=== PATIENT | female | born 1965 | race Caucasian/White ===

== ENCOUNTER → 2017-10-22 13:41 | Outpatient (REF) | payer BC, SELFPAY ==
--- NOTE | 2017-10-22 13:30 | ENDOMET_PTH ---
PATIENT: Inge Sutherland LOC: [facility] U#:[id number] AGE/SX: 59/F ROOM: RE10/22/[address]: Yaneth Andujar MD : 1965 BED: DIS: SPEC #: [id number] RECD: 10/22/17 15:30 STATUS: LEILANI REQ #: [id number] JOSE: 10/22/17 13:[address]: Yaneth Andujar DEPT: Surgical Specimen RECD BY: Luba Batres ENTERED: 10/22/17 15:30 SP TYPE: Endomet OTHR DR: Gerhard Hawk Tissues: 1 - ENDOMETRIUM BX/KENNYETTE Procedures: GROSS AND MICRO LEVEL 4 Comments: [id number]
== END ==
LOC: LBN 13:41
PROVIDERS: PCP Internal Medicine; Visit Provider Obstetrics & Gynecology
DX: N93.8 Other specified abnormal uterine and vaginal bleeding (principal); N85.8 Other specified noninflammatory disorders of uterus
CPT/HCPCS: 88305

== ENCOUNTER → 2017-11-07 00:48 | Outpatient (CLI) | payer BC, SELFPAY ==
--- NOTE | 2017-11-07 07:55 | DI.REPORT_ITS ---
SYMPTOM/DIAGNOSIS: H/O FIBROIDS, DYSFUNCTIONAL UTERINE BLEEDING, N93.8 PELVIC ULTRASOUND: 11/07 Pelvic ultrasound was performed transabdominally and transvaginally. Please see the accompanying data sheet for measurements of the pelvic structures. Limited scanning of the kidneys is unremarkable. No free fluid identified in the cul de sac. The uterus contains a couple of posterior fibroids the largest measuring about 28 mm in diameter. There is 18 mm thick endometrial stripe which is heterogeneous and appears to contain heterogeneous fluid consistent with hemorrhage. 26 mm in diameter simple cyst of the left ovary noted. No additional variant pathology identified. CONCLUSION: Uterine fibroids, thickening of the endometrial stripe which is heterogeneous with suspected hemorrhage in the endometrial cavity.
== END ==
PROVIDERS: PCP Internal Medicine; Visit Provider Obstetrics & Gynecology
DX: N93.8 Other specified abnormal uterine and vaginal bleeding (principal); D25.9 Leiomyoma of uterus, unspecified; N83.292 Other ovarian cyst, left side; R93.8 Abnormal findings on diagnostic imaging of other specified body structures
CPT/HCPCS: 76830; 76856

== ENCOUNTER 2017-11-23 11:33 | PSDC | payer BC, SELFPAY ==
[2017-11-23 12:22] LABS: Abs Immature Grans 0.04 k/cumm (0.0-0.09); Absolute Basophil Count 0.04 k/cumm (0.0-0.2); Absolute Eosinophil Count 0.13 k/cumm (0.0-0.7); Absolute Lymphocyte Count 2.19 k/cumm (1.2-3.4); Basophils % 0.3; Eosinophils % 0.9; HCT 40.9 % (36.0-46.0); HGB 13.4 g/dL (12.0-15.5); Immature Grans % 0.3; Lymphocytes % 15.1; Mean Corp. HGB Concentration 32.8 g/dL (32.0-36.0); Mean Corpuscular Volume 94.7 fL (80-95); Mean Platelet Volume 9.8 fL (8.0-11.0); Monocytes % 5.7; Neutrophils % 77.7; Platelet Count 358 x1000/uL (130-400); RBC 4.32 m/cumm (4.00-5.20); RBC Distribution Width 13.7 % (11.7-14.6); White Blood Cell Count 14.51 k/cumm (4.4-10.8)
[2017-11-23 12:24] LABS: Absolute Monocyte Count 0.83 k/cumm (0.11-0.7); Absolute Neutrophil Count 11.27 k/cumm (1.2-6.7)
[2017-11-23 12:38] VITALS: BP 134/88; PULSE 96; RESP 16; TEMP 37.5; O2SAT 98
[2017-11-23 12:44] VITALS: BP 134/88; PULSE 96; RESP 16; TEMP 37.5; O2SAT 98
[2017-11-23] MEDS: Lactated Ringers 1,000 ML 125 ML IV (12:45)
[2017-11-23] MEDS: Lidocaine 1% Pres-Free 5 ML VIAL 20 ML (13:47)
--- NOTE | 2017-11-23 13:48 | ENDOMET_PTH ---
PATIENT: Inge Sutherland LOC: [facility] U#:[id number] AGE/SX: 52/F ROOM: RE11/23/[address]: Jamal Turk MD : 1965 BED: DIS: 11/23/2017 SPEC #: [id number] RECD: 11/23/17 15:45 STATUS: LEILANI REQ #: [id number] JOSE: 11/23/17 13:[address]: Jamal Turk DEPT: Surgical Specimen RECD BY: Luba Batres ENTERED: 11/23/17 15:46 SP TYPE: Endomet OTHR DR: Gerhard Hawk Tissues: 1 - ENDOMETRIUM BX/CURRETTE Procedures: GROSS AND MICRO LEVEL 4 Comments: [id number]
[2017-11-23] MEDS: oxyCODONE 5 mg/Acetaminophen 325 mg TAB PO (14:43)
[2017-11-23 14:45] VITALS: BP 139/80; PULSE 89; RESP 16; TEMP 37.7; O2SAT 99
--- NOTE | 2017-11-23 15:49 | W.PM.OP ---
Date of service: 11/23/17 Time of Service: 15:49 Operative Note Date of procedure: 11/23/17 Pre-op diagnosis: Abnormal uterine bleeding Post-op diagnosis: same Procedure: Hysteroscopy, D&C Surgeon: Jamal Turk Anesthesia: MAC Estimated blood loss (mL): 100 Pathology: none sent (Endometrial Curettings ) Complications: None Patient was transported to: PACU Patient's condition: stable Findings: Cervix dilated 1cm with moderate bleeding. Hysterocopy was unrevealing with poor visualization due to inability to maintain distention of the uterus Procedure Description: Patient was taken to the operating room and after an adequate level of sedation was achieved patient was placed in lithotomy position. The patient was prepped and draped in usual sterile manner. A weighted speculum was placed in the vagina with good visualization of the cervix. The anterior lip of the cervix was grasped with a single-tooth tenaculum. Cervix was noted to be dilated approximately 1 cm with copious blood and clots emanating from the cervical os. A 5 mm 30? hysteroscope with normal saline distention media was advanced without difficulty. Visualization of the endometrial cavity was difficult due to the large volume of clots within the cavity and the inability to maintain distention due to the dilated cervix. A sharp curettage was performed until a gritty texture was noted throughout. Endometrial curettings were obtained and submitted to pathology. The procedure was concluded at this point. All instrumentation was removed. The patient tolerated the procedure well and was transferred to PACU in stable condition.
== END 2017-11-23 15:56 | disposition home or self-care (01) ==
PROVIDERS: PCP Internal Medicine; Visit Provider Obstetrics & Gynecology
PROC: 0UDB8ZZ Extraction of Endometrium, Via Natural or Artificial Opening Endoscopic (ICD-10-PCS; CPT 58558; principal; 2017-11-23 13:30)
DX: N93.9 Abnormal uterine and vaginal bleeding, unspecified (principal); N72 Inflammatory disease of cervix uteri
CPT/HCPCS: 58558; 36415; 86850; 86900; 86901; 88305; 85025; J2250; J2405

== ENCOUNTER 2018-06-10 00:17 | Outpatient (CLI) | payer BC, SELFPAY ==
--- NOTE | 2018-06-10 07:27 | DI.MAMMO_ITS ---
SYMPTOM/DIAGNOSIS: SCREENING, Z12.31 MAMMOGRAMS: Mammograms were interpreted according to the usual protocol including computer analysis with CAD system, tomosynthesis and C view imaging. Comparison is made with exams from [id number]. The breasts are composed of scattered fibroglandular densities. Breast density, Category B. There is an asymmetry in the upper right breast versus overlying tissue. Spot compression views and ultrasound are requested for further evaluation. No change is seen in the left breast. IMPRESSION: Left breast, category 1, negative. Right breast, category 0. MQSA ASSESSMENT OF FINDINGS: Incomplete: Needs additional imaging evaluation. Category 0. Patient will receive a letter notifying them of these results. BI-RADS category B. There are scattered areas of fibroglandular density.
== END 2018-06-10 00:37 ==
PROVIDERS: PCP Internal Medicine; Visit Provider Nurse Practitioner Family
DX: Z12.31 Encounter for screening mammogram for malignant neoplasm of breast (principal); R92.8 Other abnormal and inconclusive findings on diagnostic imaging of breast
CPT/HCPCS: 77063; 77067

== ENCOUNTER 2018-06-19 03:54 | Outpatient (CLI) | payer BC, SELFPAY ==
--- NOTE | 2018-06-19 14:14 | DI.COMBO_ITS ---
SYMPTOM/DIAGNOSIS: F/U MAMMO, ASYMMETRY RT UPPER BREAST RIGHT BREAST ADDITIONAL VIEWS AND RIGHT BREAST ULTRASOUND: Additional images are interpreted according to the usual protocol including tomosynthesis and 2D imaging. Craniocaudad and mediolateral compression spot images of the right breast were obtained today. Nonspecific fibroglandular densities are identified. No definite nodule is seen. At ultrasound, there is no evidence of a cyst or mass. SUMMARY: Small asymmetric density in the right breast with nothing specific to suggest a malignancy, however follow up surveillance of this patient with repeat mammograms and ultrasound of the right breast is suggested in 6 months. Category 3. MQSA ASSESSMENT OF FINDINGS: Probably benign. Six month follow-up recommended. Category 3. Patient will receive a letter notifying them of these results. BI-RADS category B. There are scattered areas of fibroglandular density.
== END 2018-06-19 04:14 ==
PROVIDERS: PCP Internal Medicine; Visit Provider Nurse Practitioner Family
DX: Z12.31 Encounter for screening mammogram for malignant neoplasm of breast (principal); R92.8 Other abnormal and inconclusive findings on diagnostic imaging of breast; N60.81 Other benign mammary dysplasias of right breast
CPT/HCPCS: 76642; 77063; 77067

== ENCOUNTER 2018-11-04 14:15 | Outpatient (CLI) | payer BC, SELFPAY ==
--- NOTE | 2018-11-04 14:30 | DI.RAD_ITS ---
SYMPTOM/DIAGNOSIS: THORACIC BACK PAIN, M54.6 PA AND LATERAL CHEST: The heart is normal in size. The lungs are clear. The mediastinal structures and pleura appear intact. CONCLUSION: Normal chest. THORACIC SPINE: Three views were obtained. There is loss of disc height of the intervertebral discs throughout the thoracic spine. Endplate hypertrophic changes are also seen throughout the thoracic region. No evidence of fracture. No other significant bony abnormality is seen. CONCLUSION: Degenerative changes, no other specific abnormality is seen.
== END 2018-11-04 14:35 ==
PROVIDERS: PCP Internal Medicine; Visit Provider Nurse Practitioner Family
DX: M54.6 Pain in thoracic spine (principal); M51.34 Other intervertebral disc degeneration, thoracic region
CPT/HCPCS: 71046; 72072

== ENCOUNTER 2018-12-27 00:06 | Outpatient (CLI) | payer BC, SELFPAY ==
--- NOTE | 2018-12-27 13:58 | DI.MAMMO_ITS ---
EXAM: MG MAMMO DIAGNOSTIC UNI CLINICAL HISTORY: 6 mo f/u right mammogram R92.8 ABNORMAL FINDINGS. TECHNIQUE: Mammograms were interpreted according to the usual protocol including computer analysis w [employer] CAD system, tomosynthesis and C-view imaging. COMPARISON: 06/19/18 Mammogram FINDINGS: A 6-month follow-up examination of the right breast includes mediolateral and craniocaudad projection s. The density is identified. There has been no appreciable interval change when compared with the p rior examination. There is no demonstrated mass. There is no suspicious calcification. IMPRESSION: No evidence of malignancy, category 1, yearly screening mammography is recommended. Breast density c ategory B. BI-RADS Cat 1 - Negative Breast Density - Category B - Scattered areas of fibroglandular density
== END 2018-12-27 00:26 ==
PROVIDERS: PCP Internal Medicine; Visit Provider Nurse Practitioner Family
DX: Z12.31 Encounter for screening mammogram for malignant neoplasm of breast (principal); R92.8 Other abnormal and inconclusive findings on diagnostic imaging of breast; N60.81 Other benign mammary dysplasias of right breast
CPT/HCPCS: 77061; 77065; G0279

== ENCOUNTER 2019-02-03 12:06 | Outpatient (CLI) | payer BC, SELFPAY ==
--- NOTE | 2019-02-03 13:20 | DI.RAD_ITS ---
EXAM: XR FOOT RT COMPLETE INDICATION: RT FOOT PAIN, M79.671. COMPARISON: No exams were available for comparison TECHNIQUE: 2D digital imaging was performed. FINDINGS: There is no evidence of fracture or signs of stress fracture. Heel spurs are noted. There are minim al degenerative changes of the 1st MTP joint. IMPRESSION: Heel spurs and mild degenerative changes.
== END 2019-02-03 12:26 ==
PROVIDERS: PCP Internal Medicine; Visit Provider Nurse Practitioner Family
DX: M79.671 Pain in right foot (principal); M77.31 Calcaneal spur, right foot; M19.071 Primary osteoarthritis, right ankle and foot
CPT/HCPCS: 73630

== ENCOUNTER 2019-08-04 01:07 | Outpatient (CLI) | payer BC, SELFPAY ==
--- NOTE | 2019-08-04 15:30 | DI.MAMMO_ITS ---
EXAM: MG MAMMO SCREENING CLINICAL HISTORY: screening,Z12.39 TECHNIQUE: Bilateral full field digital CC and MLO mammographic images were obtained with 3D tomosyn thesis and utilizing computer aided detection (CAD). COMPARISON: Available for comparison. FINDINGS: Masses/Architectural Distortion: None seen. Microcalcifications: No suspicious pleomorphic-type are seen. Skin Thickening/Nipple Retraction: None. IMPRESSION: 1. No significant interval change with no specific features of malignancy noted. 2. Unless there is more urgent need, screening mammography is recommended, as per [employer] [employer] guidelines. BI-RADS Category 1 - Negative Breast Density - Category B - Scattered areas of fibroglandular density A negative radiographic report should not delay biopsy if a dominant or clinically suspicious mass is present. Up to ten percent of cancers are not identified on mammography. A negative report may reinforce clinical impression. Adenosis and dense breasts may obscure an underlying neoplasm. False positive reports average 6 to 10%. Patient will receive a letter notifying them of these results.
== END 2019-08-04 01:27 ==
PROVIDERS: PCP Internal Medicine; Visit Provider Nurse Practitioner Family
DX: Z12.31 Encounter for screening mammogram for malignant neoplasm of breast (principal)
CPT/HCPCS: 77063; 77067

== ENCOUNTER 2019-10-02 14:25 | Outpatient (REF) | payer BC, SELFPAY ==
[2019-10-09 22:24] LABS: SARS-CoV-2 RNA Undetected (Undetected); SARS-CoV-2 Specimen Source Nasopharynx
== END 2019-10-02 14:45 ==
LOC: NCHCN 14:25
PROVIDERS: PCP Internal Medicine; Visit Provider Nurse Practitioner Family
DX: Z11.59 Encounter for screening for other viral diseases (principal); J02.9 Acute pharyngitis, unspecified
CPT/HCPCS: U0003

== ENCOUNTER 2020-02-16 00:57 | Outpatient (CLI) | payer BC, SELFPAY ==
--- NOTE | 2020-02-16 06:45 | DI.US_ITS ---
EXAM: US PELVIS TRANSVAGINAL CLINICAL HISTORY: POSTMENOPAUSAL BLEEDING,N93.9. TECHNIQUE: Transabdominal and transvaginal pelvic ultrasound was performed using standard protocol. COMPARISON: US PELVIS TRANSVAG from 11/07/2017 FINDINGS: KIDNEYS: Kidneys are symmetric in size. No evidence of renal calculi. No evidence of hydronephrosis. No renal mass or cyst identified. UTERUS: The uterus is nongravid in anteverted, measuring 12 centimetres in length by 5 centimetres AP by 7.5 centimetres wide there are an fibroids again noted. The largest is posteriorly near the fundus and m easures approximately 3.4 x 2.5 x 3.1 centimetres. Anteriorly at approximately the same level there is a fibroid measuring 2.9 x 2.2 x 3.0 centimetres. Lower down in the anterior uterine wall is a sma ller fibroid measures 1.2 x 1.0 x 1.3 centimetres. The endometrial thickness is 9-10 millimeters.. There is no fluid in the endometrial canal. OVARIES: Right: 1.8 x 1.3 x 1.2 centimeter cm Cyst or mass: None. Left: 2.5 x 1.6 x 1.37 cm Cyst or mass: None. DOPPLER: Color: Symmetric and uniform flow to both ovaries. No hyperemia. Duplex: Normal ovarian arterial waveforms visualized. CUL-DE-SAC: Free fluid: None. Other: None. IMPRESSION: 1. Uterine fibroids again noted. Thickened endometrium. No fluid in the endometrial canal. 2. No abnormal adnexal findings and no free fluid in the cul-de-sac. 3. Normal-appearing uterus with endometrial stripe within normal limits. 4. Unremarkable bilateral ovaries. DATA REPOSITORY:
== END 2020-02-16 01:17 ==
PROVIDERS: PCP Internal Medicine; Visit Provider Obstetrics & Gynecology
DX: N93.9 Abnormal uterine and vaginal bleeding, unspecified (principal); D25.9 Leiomyoma of uterus, unspecified
CPT/HCPCS: 76830; 76856

== ENCOUNTER 2020-02-23 18:05 | Outpatient (REF) | payer BC, SELFPAY ==
--- NOTE | 2020-02-23 14:47 | ENDOMET_PTH ---
PATIENT: Inge Sutherland LOC: [facility] U#:[id number] AGE/SX: 54/F ROOM: RE02/23/[address]: Lorena Flores DO : 1965 BED: DIS: 02/23/2020 SPEC #: [id number] RECD: 02/23/20 18:23 STATUS: LEILANI REQ #: [id number] JOSE: 02/23/20 14:[address]: Lorena Flores DEPT: Surgical Specimen RECD BY: Luba Batres ENTERED: 02/23/20 18:24 SP TYPE: Endomet OTHR DR: Gerhard Hawk Tissues: 1 - ENDOMETRIUM BX/KENNYETTE Procedures: GROSS AND MICRO LEVEL 4 Comments: [id number]
== END 2020-02-23 18:25 ==
LOC: LBN 18:05
PROVIDERS: PCP Internal Medicine; Visit Provider Obstetrics & Gynecology
DX: N85.01 Benign endometrial hyperplasia (principal); N95.0 Postmenopausal bleeding
CPT/HCPCS: 88305

== ENCOUNTER 2020-03-26 02:28 | Outpatient (CLI) | payer BC, SELFPAY ==
[2020-03-26 09:11] LABS: HCT 45.9 % (36.0-46.0); MCH 30.7 pg (27.0-33.0); MCHC 32.7 % (32.0-36.0); MCV 94.1 fL (80-95); Platelet Count 323 10^3/uL (130-400); RBC 4.88 10^6/uL (3.93-5.22); RDW 13.2 % (11.7-14.6); RDW-SD 45.8 fL; WBC 8.31 10^3/uL (4.4-10.8)
[2020-03-27 15:32] LABS: COVID-19 RT-PCR UVMMC Result Negative (Negative)
== END 2020-03-26 02:48 ==
PROVIDERS: PCP Internal Medicine; Visit Provider Obstetrics & Gynecology
DX: D25.9 Leiomyoma of uterus, unspecified (principal); N95.0 Postmenopausal bleeding; Z11.52 Encounter for screening for COVID-19; Z01.818 Encounter for other preprocedural examination; Z01.812 Encounter for preprocedural laboratory examination
CPT/HCPCS: 36415; 85027; 86850; 86900; 86901; U0003

== ENCOUNTER 2020-03-31 07:30 | Inpatient (IN) | payer BC, SELFPAY ==
[2020-03-31] VITALS (15 sets, daily range): BP systolic 107–150; BP diastolic 73–94; PULSE 70–105; RESP 9–18; TEMP 36.1–37.3; O2SAT 95–98
[2020-03-31] MEDS: Lactated Ringers 1,000 ML 125 ML IV ×3 (07:10→20:56)
[2020-03-31] MEDS: ceFAZolin 2 GM/50 ML BAG IVPB (08:08)
[2020-03-31] MEDS: Bupivacaine 0.25% Pres-Free 30 ML VIAL (08:33)
--- NOTE | 2020-03-31 09:40 | UTER_PTH ---
PATIENT: Inge Sutherland LOC: U#:[id number] AGE/SX: 54/F ROOM: RE03/31/[address]: Lorena Flores DO : 1965 BED: A DIS: 04/01/2020 SPEC #: [id number] RECD: 03/31/20 12:30 STATUS: LEILANI REQ #: [id number] JOSE: 03/31/20 09:[address]: Lorena Flores DEPT: Surgical Specimen RECD BY: Luba Batres ENTERED: 03/31/20 12:31 SP TYPE: UTER OTHR DR: Gerhard Hawk Tissues: 1 - UTERUS W OR W/O OVARIES(NOT TUMOR/PROLAPSE) Procedures: GROSS AND MICRO LEVEL 5 Comments: [id number]
--- NOTE | 2020-03-31 10:19 | ROE_ITS ---
Date of service: 03/31/20 Time of Service: 10:20 Operative Note Operative Note DATE OF PROCEDURE: 03/31/20 PRE-OP DIAGNOSIS: Bulky fibroid uterus with postmenopausal bleeding POST-OP DIAGNOSIS: same Pain with history significant pelvic adhesions PROCEDURE: Total abdominal hysterectomy with bilateral salpingo-oophorectomy and lysis of adhesions SURGEON: Lorena Flores ASSISTING SURGEON: Cortney Fernandes ANESTHESIA: GETA and spinal ESTIMATED BLOOD LOSS: 200 PATHOLOGY: other (Bilateral tubes, ovaries, uterus, cervix) COMPLICATIONS: None Patient was transported to: PACU Patient's condition: stable Indications: Symptomatic uterine fibroid and postmenopausal bleeding Findings: Adhesions of the uterus to the anterior abdominal wall, lower uterine segment adhesions to the bladder, 10-week size bulky fibroid uterus, normal- appearing fallopian tube, bilateral cystic ovaries Procedure Description: Patient requested definitive therapy for symptomatic uterine fibroids and postmenopausal bleeding. She had a full and thorough evaluation preoperatively and informed consent was obtained. She was taken the operating suite with IV running where she placed in a seated position and spinal anesthesia administered for postoperative pain control. Patient stood and found to be adequate. She was then placed in dorsal supine position and prepped and draped in usual sterile fashion after Russell catheter had been inserted. Quarter percent Marcaine was used to infiltrate the previous abdominal incision. Pfannenstiel skin incision was made through her previous section scar and carried down to the underlying fascia. At this point fascia was identified and nicked in the midline. The fascial incision was then extended laterally. Fascia was elevated and rectus muscles identified. Rectus muscles were meticulously dissected away from the fascia. Rectus muscles were split midline peritoneum identified tented up and entered sharply. There is noted to be adhesions of the entire anterior surface of the uterus to the anterior abdominal wall. This was meticulously dissected away from the anterior abdominal wall down to the lower uterine segment. Also noted were adhesions of the bladder to the lower uterine segment from previous section again these were meticulously sharply dissected away from the lower uterine segment. At this point the Bre self-retaining retractor was placed and bowel was packed away for appropriate visualization. This allowed identification of the round ligaments bilaterally which were clamped with Thais clamps elevated and suture ligated. Attention was first turned to the right round ligament where the right broad ligament was opened and the retroperitoneal space entered. Ureter was identified well below the surgical field. Bladder flap was created with meticulous sharp dissection. The infundibulopelvic ligament was identified clamped x2 and transected. Pedicles were then ligated and attention was turned to the left round ligament and insular fashion retroperitoneal space opened ureter identified and the left infundibulopelvic ligament clamped transected and ligated. In a systematic fashion the uterine vessels were clamped transected and ligated first on the right and left. Entered the uterosacral cardinal complex. Bladder was well below the lower uterine segment and at this point pedicles that were hemostatic were identified. A acutely curved upper clamp was placed at the cornua of the vaginal vault and the uterus, cervix, ovaries and fallopian tubes were removed. The vaginal cuff was then closed using 0 Vicryl suture in a running locked fashion after corners were secured. Pelvic support and uterosacral cardinal complex were incorporated into the vaginal. At this point abdomen is irrigated with copious amounts of normal saline all pedicles were inspected and found to be hemostatic. Packing and [place] retractor were then removed from the abdomen. Again all incisions were inspected and found to be hemostatic. The fascial incision was then closed using 0 Vicryl suture in a running fashion and hemostatic. She tissue was irrigated with copious amounts of normal and subcu tissue was reapproximated with 3-0 Vicryl interrupted fashion. Skin edge was reapproximated with 4-0 Monocryl suture, undyed, in a subcuticular fashion. Steri-Strips and sterile dressing were placed. Patient awoke from anesthesia with ease. EBL: 200 Complications: None apparent Pathology: Uterus, tubes, ovaries, cervix Findings: As above
--- OUTSIDE RECORDS SUMMARY | 2020-03-31 10:28 | XMS_ITS ---
:1965 Author Care Team Providers Name Role Phone MONICO KEYS Primary Care Provider [phone] MONICO KEYS Referring Provider [phone] Allergies Code Code System Name Reaction Severity Status Onset NKDA ? Medications Name Status Start Date Stop Date ? ? Claritin 10 mg tablet Active ? Not availa ble Take 1 tablet every day by oral route. cyclobenzaprine 10 mg tablet Active ? Not available Take 1 tablet 3 times a day by oral route as needed. ibuprofen 600 mg tablet Active ? Not avai lable Take 1 tablet 3 times a day by oral route as needed. lidocaine 5 % topical ointment Active ? N ot available APPLY TO AFFECTED AREA(S) BY TOPICAL ROUTE 1-4 TIMES DAILY N EEDED melatonin 5 mg capsule Active ? Not avail able Take 1 capsule every day by oral route. Problems Name Status Onset Date Source ? Actinic Keratosis Active 02/21/2019 ? Calcaneal Spur Active 02/21/2019 ? Foot Pain Active 02/21/2019 ? History of Back Pain Active 02/21/2019 ? Greater Trochanteric Pain Syndrome Active 02/21/2019 ? Procedures None recorded. Results Lab Results None recorded. Past Encounters 04/10/2019 Foot Pain; Plantar Fasciitis of Right Fo ot [place] [facility]: [address] [place] [phone], Ph. 03/17/2019 Pain in Right Heel; Plantar Fasciitis of Right Foot [place] [facility]: [address] [place] [phone], Ph. 02/24/2019 Plantar Heel Pain; Plantar Fasciitis of Right Foot [place] [facility]: [address] [place] [phone], Ph. Social History Tobacco Smoking Status Never Smoker Vaccine List Vaccine Type Tdap 07/23/2009 Plan of Care Patient Instructions ice heel daily. Calf stretches before bed 1st thing in a m . Arch support, consider injection. avoid bare foot walking Patient presents with right heel pa in with significant findings including:pain on palpation of insertion and band of fa scia Based on history, physical exam, and prior diagnostic tests/treatments, I sam reich consider Iinjection. Discussed treatment plan and orders with patient as indicate d below. She wants to hold off on sections which she will consider using a more dur able arch support such as the super feet I taught the patient how to perform approp riate calf muscle stretching Reminders Provider Appointments None recorded. ? ? Lab None recorded. ? ? Referral None recorded. ? ? Procedures None recorded. ? ? Surgeries None recorded. ? ? Imaging None recorded. ? ? Vitals 04/10/2019 08:30AM PODIATRY FOLLOW UP Height Weight BMI Blood Pressure 157.48 cm 90.72 kg 36.6 kg/m2 98/68 mm[Hg] 03/17/2019 10:45AM PODIATRY FOLLOW UP Height Weight BMI Blood Pressure 157.48 cm 90.72 kg 36.6 kg/m2 136/80 mm[Hg] 02/24/2019 01:15PM PODIATRY NEW PATIENT Height Weight BMI Blood Pressure 157.48 cm 90.72 kg 36.6 kg/m2 118/62 mm[Hg]
[2020-03-31] MEDS: Acetaminophen 500 MG TAB PO ×3 (11:54→21:03)
[2020-03-31] MEDS: Ibuprofen 600 MG TAB PO (18:26)
--- NOTE | 2020-03-31 19:56 | PGE_ITS ---
Date of Service Date of service: 03/31/20 Time of Service: 19:56 Assessment and Plan Assessment and plan (1) Status post total abdominal hysterectomy and bilateral salpingo- oophorectomy: Status: Acute Assessment and plan: Patient is postoperative day #0 status post total abdominal hysterectomy with bilateral salpingo-oophorectomy due to fibroid uterus and significant adhesiolysis from pelvic adhesions. She will have routine postoperative care. Ambulate. Advance diet as tolerated. Transition to oral pain medications. CBC in the morning. Subjective Subjective Interval history since last seen: Patient seen this evening postoperative day #0. She is ambulating. Russell catheter is out. She has no pain. She is tolerating regular diet and feeling well. Her surgery was discussed at length today. We will continue to monitor vital signs. CBC in the morning. Continue to ambulate and oral pain medications. Exam Narrative Exam Narrative: Patient sitting upright in bed doing well looking well with stable vital signs. Surgery discussed at length Eyes General: appearance normal, both eyes and all related structures Resp Effort & Inspection: normal respiratory effort Cardio Rate: regular rate Objective Last Vital Signs Temp 98.8 F 03/31/20 15:26 Pulse 73 03/31/20 15:26 Resp 18 03/31/20 15:26 BP 150/87 H 03/31/20 15:26 Pulse Ox 97 03/31/20 15:26
[2020-03-31] MEDS: Docusate Sodium 100 MG CAP PO (20:56)
[2020-03-31] MEDS: Melatonin 3 MG TAB PO (20:56)
[2020-04-01] MEDS: Ibuprofen 600 MG TAB PO ×2 (00:43→12:17)
[2020-04-01] MEDS: Acetaminophen 500 MG TAB PO ×5 (00:43→20:27)
[2020-04-01] MEDS: Normal Saline Flush 10 ML SYR IV (00:44)
[2020-04-01 03:12] VITALS: BP 117/77; PULSE 77; RESP 14; TEMP 37; O2SAT 96
[2020-04-01] MEDS: Lactated Ringers 1,000 ML 125 ML IV (04:50)
[2020-04-01 06:36] LABS: HGB 13.6 g/dL (11.2-15.7); MCH 30.6 pg (27.0-33.0); MCHC 33.2 % (32.0-36.0); MCV 92.1 fL (80-95); MPV 10.4 fL (8.0-11.0); Platelet Count 300 10^3/uL (130-400); RBC 4.45 10^6/uL (3.93-5.22); RDW 13.2 % (11.7-14.6); RDW-SD 44.9 fL
--- NOTE | 2020-04-01 07:08 | PGE_ITS ---
Date of Service Date of service: 04/01/20 Time of Service: 07:08 Assessment and Plan Assessment and plan (1) Status post total abdominal hysterectomy and bilateral salpingo- oophorectomy: Status: Acute Assessment and plan: Postoperative day #1 status post total abdominal hysterectomy with bilateral salpingo-oophorectomy. She is doing well. She is ambulating, tolerating regular diet and oral pain medication with stable vital signs. She will continue to transition to more activity and good pain control as her intrathecal is wearing off. My anticipation would be discharged home in the morning. Subjective Subjective Patient reports: no new complaints, feels better, pain is less, voiding w/o difficulty and flatus; denies nausea, vomiting, shortness of breath and fever Interval history since last seen: Patient seen and examined today. Doing very well. She is up in a chair and has been moving around. She is eating a regular diet, she has passed gas, and she is transitioning from parenteral to oral pain medication. I would anticipate discharge home tomorrow. Exam Const General: cooperative, healthy appearing, comfortable and no acute distress Eyes General: appearance normal, both eyes and all related structures Resp Effort & Inspection: normal respiratory effort Cardio Palpation: normal PMI Rate: regular rate GI Inspection: non-distended, incision (Dressing removed. Steri-Strips in place. No erythema, induration, ecchymo) and no obesity Palpation: soft, not firm and no guarding Auscultation: normal bowel sounds Skin General skin exam: no rashes or lesions noted Extrem General: normal to inspection, no calf tenderness, no clubbing, no cyanosis and no edema Objective Last Vital Signs Temp 98.6 F 04/01/20 03:12 Pulse 77 04/01/20 03:12 Resp 14 04/01/20 03:12 BP 117/77 04/01/20 03:12 Pulse Ox 96 04/01/20 03:12 Laboratory Results - last 24 hr 04/01/20 06:10 WBC 12.50 H RBC 4.45 Hgb 13.6 Hct 41.0 MCV 92.1 MCH 30.6 MCHC 33.2 RDW 13.2 Plt Count 300 MPV 10.4
[2020-04-01 07:19] VITALS: BP 154/88; PULSE 77; RESP 17; TEMP 36.9; O2SAT 99
[2020-04-01] MEDS: Docusate Sodium 100 MG CAP PO (07:43)
--- NOTE | 2020-04-01 08:36 | PDOC.CMIN ---
- If Service Date Differs Date of service: 04/01/20 Time of Service: 08:36 Care Management Initial Assess REASON FOR HOSPITALIZATION:: Total abdominal Hyst with bilateral S&O PAST MEDICAL HISTORY/PAST SURGICAL HISTORY:: Medical History (Updated 02/23/20 @ 15:10 by Lorena Flores DO). Perimenopausal menorrhagia (11/2017). Rx with norethindrone followed by [facility]. 02/2019 D&C normal endometrium. 04/2018 Rx with DepoLupron. Perimenopause (09/05/16). Uterine fibroid. Surgical History . section. X 2. Ligation of fallopian tube PREVIOUS FUNCTIONAL STATUS/SOCIAL/FAMILY SUPPORTS:: Inge lives in [place] with her Jamal. She retired from [employer] in August. She is independent at baseline and requires no services or assistive devices. CURRENT FUNCTIONAL STATUS:: Inge was siting up in bed when CM met with her. She was very pleasant and engaged readily with CM. She shared that her is a night deputy and will take her home tomorrow morning. She shared that she feels well, much better than anticipated. ADVANCE DIRECTIVES:: none on file but has them at home with her will. Has patient been provided with info about the portal/API?: Yes Did the patient sign up for the portal?: No CODE STATUS:: Full Code INSURANCE COVERAGE / FINANCIAL ISSUES:: BS CURRENT HOME/COMMUNITY SERVICES/EQUIPMENT:: none PRIMARY CARE PHYSICIAN:: Gerhard Hawk POTENTIAL DISCHARGE NEEDS:: Follow up with mary kay of care PATIENT/FAMILY EDUCATION NEEDS:: discharge plan, limitations, follow up, Ask Me Three TRANSPORTATION:: via private vehicle with family PLAN:: Inge will be discharged home with no services. She will follow up with her surgeon and plan of care. Inge will transport with her . CM will continue to support Inge and her discharge planning needs.
[2020-04-01 11:22] VITALS: BP 132/85; PULSE 71; RESP 17; TEMP 36.5; O2SAT 96
--- NOTE | 2020-04-01 14:07 | CHAPLAIN ---
Inge was resting in bed when I visited. She was appreciative of the care she's received. 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 She's been in touch with her her son and daughter by phone. Her son lives out of town, and Inge has been able to Skype or Facetime with her son and two year old granddaughter which has made her happy.
[2020-04-01 15:05] VITALS: BP 133/82; PULSE 70; RESP 17; TEMP 37.4; O2SAT 98
[2020-04-01 19:14] VITALS: BP 124/73; PULSE 72; RESP 18; TEMP 36.5; O2SAT 97
--- NOTE | 2020-04-06 07:43 | DSE_ITS ---
Date of service: 04/06/20 Time of Service: 07:43 DS: Diagnosis Discharge Diagnosis (1) Status post total abdominal hysterectomy and bilateral salpingo- oophorectomy: Status: Acute Discharge Plan Disposition Patient Disposition: HOME Condition: Good Discharge Details Reason For Visit: BENJI ARAUZ Admit Date/Time: 03/31/20 07:30 Admit Provider: Lorena Flores Attending Provider: Lorena Flores Primary Care Provider: Gerhard Hawk [facility] Hospital Course: Patient underwent uncomplicated total abdominal hysterectomy with bilateral s alpingo-oophorectomy for symptomatic uterine fibroids and extensive pelvic adhesions. She has had an uncomplicated postoperative course thus far I would anticipate discharge home postoperative day #2. She will be self ambulatory, taking oral pain medications and having regular diet Home Meds and New Rx's Prescriptions: New acetaminophen [Mapap Extra Strength] 500 mg Tablet 500 - 1,000 mg PO Q4H PRN [id number] Days RF: 0 oxycodone-acetaminophen 5-325 mg Tablet 1 - 2 tab PO Q4H PRN PRNQty: 10 RF: 0 docusate sodium [Colace] 100 mg Capsule 100 mg PO BID Qty: 30 RF: 0 ibuprofen [IBU] 600 mg Tablet 600 mg PO Q6H PRN PRNQty: 40 RF: 1 Continued melatonin 3 MG tablet 3 mg PO HS RF: 0 loratadine 5 mg/5 mL solution 10 mg PO DAILY PRN (Reason: allergy symptoms) RF: 0 Discontinued norethindrone acetate [Aygestin] 5 mg tablet 5 mg PO DAILY Qty: 30 RF: 2 ibuprofen 600 mg tablet 600 mg PO DAILY RF: 0 Discharge Instructions Instructions: Hysterectomy (GEN) Stand Alone Forms: [facility] Post Gynecology Surgery, Nursing Discharge Form Activity:: Pelvic rest Equipment/Supplies:: No Equipment Needed Diet:: As Tolerated Discharge Orders Discharge Orders: Discharge Order (Routine); Ordered 04/01/20 Ordered By: Lorena Flores Discharge Data Discharge Date/Time-TO BE ENTERED AT DEPARTURE: 04/01/20 21:26 DS: Summary Status at Discharge Functional status at discharge: independent ambulation Overall status at discharge: patient is progressing back to baseline Mental Status: mental status grossly normal Speech and Movement: speech and movement normal Mood: congruent mood Affect: normal affect Time Spent with Patient providing and/or coordinating discharge services: Less than 30 minutes Exam Narrative Exam Narrative: Please see progress note from discharge date for full exam Psych Mental Status: mental status grossly normal Speech and Movement: speech and movement normal Mood: congruent mood Affect: normal affect DS: Data Vitals/I&O Vitals and I&O: Vital Signs Temperature 97.7 F 04/01/20 19:14 Temperature Source Tympanic 04/01/20 19:14 Pulse 72 04/01/20 19:14 Pulse Rhythm Regular 04/01/20 20:28 Respiratory Rate 18 04/01/20 19:14 Respiratory Effort Non-Labored 04/01/20 20:28 Respiratory Depth Normal 04/01/20 16:30 Respiratory Pattern Normal 04/01/20 20:28 Blood Pressure 124/73 04/01/20 19:14 Pulse Oximetry 97 04/01/20 19:14 Respiratory End-tidal CO2 33 03/31/20 11:13 Oxygen Delivery Method Room Air 04/01/20 19:14 Oxygen Flow Rate 0 04/01/20 19:14 Pain Level 0 04/01/20 20:27 PFSH Medical History Perimenopausal menorrhagia (11/2017) Rx with norethindrone followed by [facility]. 02/2019 D&C normal endometrium. 04/2018 Rx with DepoLupron. Perimenopause (09/05/16) Uterine fibroid Surgical History section X 2 Hx of colonoscopy Hx of dilation and curettage 2018 Ligation of fallopian tube Status post total abdominal hysterectomy and bilateral salpingo-oophorectomy Family History Mother Lupus Stroke in her 40s Father Prostate cancer Cancer of spine Social History Smoking/Tobacco Use Status: Never Second Hand Exposure: No Smoking risk assessment performed?: Yes Alcohol Intake: never Drug use: Never Substance use type: does not use Seatbelt use: always Do you feel safe at home: Yes Do you feel safe in your relationship?: Yes History History 2 Para 2 Hx # Term Pregnancies Multiple births Hx # Pregnancies Ectopic pregnancies AB induced Hx Number of Living Children AB spontaneous
== END 2020-04-01 21:26 | disposition home or self-care (01) | DRG 743 ==
LOC: PDS 10:26 → MS 11:16
PROVIDERS: Admitting Provider Obstetrics & Gynecology; PCP Internal Medicine; Visit Provider Obstetrics & Gynecology
PROC: 0UT90ZZ Resection of Uterus, Open Approach (ICD-10-PCS; CPT 58150; principal; 2020-03-31 07:30)
DX: D25.9 Leiomyoma of uterus, unspecified (principal); N92.4 Excessive bleeding in the premenopausal period
CPT/HCPCS: 58150; 36415; 81025; 85027; 99232; 99233; 99238; 88307; J0690; J1100; J1885; J2001; J2250; J2370; J2405; J3010; J3475

== ENCOUNTER 2020-08-04 01:08 | Outpatient (CLI) | payer BC, SELFPAY ==
--- NOTE | 2020-08-04 08:05 | DI.MAMMO_ITS ---
Exam(s) MAMMO SCREENING EXAM: MAMMO SCREENING CLINICAL HISTORY: screening. TECHNIQUE: Bilateral full field digital CC and MLO mammographic images were obtained with 3D tomosyn thesis and utilizing computer aided detection (CAD). COMPARISON: Prior mammograms dating back to 2011, the most recent being July 2019. FINDINGS: In the left breast on 3D imaging (cc) there is noncalcified oval nodule measuring 12 by 9 millimeters located approximately 6 cm in from the nipple, slightly lateral of center. In the right breast there is a 11 x 8 millimeter asymmetric density-possible nodule seen also on 3D i maging and located approximately 8 cm in from the nipple. There benign-appearing microcalcifications in both breasts. No malignant-appearing microcalcification groups seen. There is no significant architectural distortion nor skin thickening-retraction. IMPRESSION: Bilateral asymmetric densities-possible nodules. Bilateral spot compression cc 3D views recommended. Also bilateral breast ultrasound. BI-RADS Category 0 - Assessment Incomplete: Need additional imaging evaluation Breast Density - Category B - Scattered areas of fibroglandular density Breast density Category C or D implies that the patient has dense breast tissue. Dense breast tissue can make it harder to find cancer on a mammogram. Dense breast tissue is also associated with an incr eased risk of breast cancer. This information about the result of the mammogram report was provided to the patient to raise their awareness. Use this report when you speak with the patient about their risks for breast cancer, which includes their family history. At that time, you may recommend additional screening tests (Ultrasoun d or MRI) as these tests may add significant information. A negative radiographic report should not delay biopsy if a dominant or clinically suspicious mass is present. Up to ten percent of cancers are not identified on mammography. A negative report may reinforce clinical impression. Adenosis and dense breasts may obscure an underlying neoplasm. False positive reports average 6 to 10%. Patient will receive a letter notifying them of these results.
== END 2020-08-04 01:28 ==
PROVIDERS: PCP Internal Medicine; Visit Provider Obstetrics & Gynecology
DX: Z12.31 Encounter for screening mammogram for malignant neoplasm of breast (principal); R92.8 Other abnormal and inconclusive findings on diagnostic imaging of breast
CPT/HCPCS: 77063; 77067

== ENCOUNTER 2020-08-06 04:34 | Outpatient (CLI) | payer BC, SELFPAY ==
--- NOTE | 2020-08-06 | DI.US_ITS ---
Exam(s) US BREAST LT COMPLETE US BREAST RT COMPLETE MG MAMMO SCREEN CALL BACK BI EXAM: MG MAMMO SCREEN CALL BACK BI CLINICAL HISTORY: F/U MAMMO,BILAT ASYMMETRIC DENSIITES, ? NODULES TECHNIQUE: Mammograms were interpreted according to the usual protocol including computer analysis w [employer] CAD system, tomosynthesis and C-view imaging. COMPARISON: FINDINGS: Spot compression views of both breasts and bilateral breast ultrasound was performed to evaluate ques tionable areas of nodularity seen bilaterally in the right and left breast. Spot compression views f ail to show a discrete mass. Breast ultrasound shows small bilateral breast cysts remote to the area of suspected nodularity bilaterally. No solid mass identified ultrasonographically. IMPRESSION: No specific evidence of malignancy at this time. I would suggest that a follow-up bilateral mammogra m be obtained in 6 months. BI-RADS Category 3 - 6 month - Probably Benign Finding: Recommend follow-up mammography in 6 months Breast Density - Category B - Scattered areas of fibroglandular density
== END 2020-08-06 04:54 ==
PROVIDERS: PCP Internal Medicine; Visit Provider Obstetrics & Gynecology
DX: Z12.31 Encounter for screening mammogram for malignant neoplasm of breast (principal); R92.8 Other abnormal and inconclusive findings on diagnostic imaging of breast; N60.11 Diffuse cystic mastopathy of right breast; N60.12 Diffuse cystic mastopathy of left breast
CPT/HCPCS: 76642; 77063; 77067

== ENCOUNTER 2021-02-01 08:42 | Outpatient (CLI) | payer BC, SELFPAY ==
--- NOTE | 2021-02-01 09:30 | DI.MAMMO_ITS ---
Exam(s) MAMMO DIAGNOSTIC BI EXAM: MAMMO DIAGNOSTIC BI CLINICAL HISTORY: F/U ABNL MAMMO, R92.8 TECHNIQUE: Mammograms were interpreted according to the usual protocol including computer analysis w ith CAD system, tomosynthesis and C-view imaging. COMPARISON: 2011 through July 2020 FINDINGS: The breasts are composed of scattered fibroglandular densities, Breast Density category B. No suspicious masses or suspicious microcalcifications are seen. No skin thickening or abnormal axillary lymph nodes are seen. There has been no significant change from prior exams. IMPRESSION: BI-RADS Category 1, Negative mammogram Yearly screening mammography is recommended. Breast Density - Category B, scattered fibroglandular densities. A negative radiographic report should not delay biopsy if a dominant or clinically suspicious mass is present. Up to ten percent of cancers are not identified on mammography. A negative report may reinforce clinical impression. Adenosis and dense breasts may obscure an underlying neoplasm. False positive reports average 6 to 10%. Patient will receive a letter notifying them of these results.
== END 2021-02-01 09:02 ==
PROVIDERS: PCP Internal Medicine; Visit Provider Obstetrics & Gynecology
DX: R92.8 Other abnormal and inconclusive findings on diagnostic imaging of breast (principal)
CPT/HCPCS: 77062; 77066; G0279

== ENCOUNTER 2021-03-10 09:14 | Outpatient (REF) | payer BC, SELFPAY ==
[2021-03-10 19:49] LABS: ALT 44 U/L (14-59); AST 18 U/L (15-37); Albumin 4.2 g/dL (3.4-5.0); Alkaline Phosphatase 105 U/L (46-116); Anion Gap 11.1 mmol/L (3-11); BUN 17 mg/dL (7-18); Bilirubin, Total 0.3 mg/dL (0.2-1.0); CO2 26.9 mmol/L (21.0-32.0); CREATININE 0.9 mg/dL (0.55-1.02); Calcium 9.5 mg/dL (8.5-10.1); Calculated LDL 141 mg/dL (<100); Chloride 103 mmol/L (98-107); Cholesterol 238 mg/dL (<200); Glucose 100 mg/dL (74-106); HDL Cholesterol 51 mg/dL (40-60); Potassium 4.7 mmol/L (3.5-5.1); Sodium 141 mmol/L (136-145); Total Protein 7.5 g/dL (6.4-8.2); Triglyceride 231 mg/dL (<150)
[2021-03-10 19:52] LABS: Hemoglobin A1C 5.8 % (<5.7)
== END 2021-03-10 09:15 | disposition home or self-care (01) ==
LOC: NCHCN 09:14
PROVIDERS: PCP Internal Medicine; Visit Provider Nurse Practitioner Family
DX: E78.5 Hyperlipidemia, unspecified (principal); R73.03 Prediabetes; Z68.36 Body mass index [BMI] 36.0-36.9, adult
CPT/HCPCS: 80053; 80061; 83036

== ENCOUNTER → 2022-02-17 01:28 | Outpatient (CLI) | payer BC, SELFPAY ==
--- NOTE | 2022-02-17 14:50 | DI.MAMMO_ITS ---
Exam(s) MAMMO SCREENING EXAM: MAMMO SCREENING CLINICAL HISTORY: screening TECHNIQUE: Mammograms were interpreted according to the usual protocol including computer analysis w [employer] CAD system, tomosynthesis and C-view imaging. COMPARISON: 2012 through 2020 FINDINGS: The breasts are composed of scattered fibroglandular densities, Breast Density category B. No suspicious masses or suspicious microcalcifications are seen. No skin thickening or abnormal axillary lymph nodes are seen. There has been no significant change from prior exams. IMPRESSION: BI-RADS Category 1, Negative mammogram Yearly screening mammography is recommended. Breast Density - Category B, scattered fibroglandular densities. A negative radiographic report should not delay biopsy if a dominant or clinically suspicious mass is present. Up to ten percent of cancers are not identified on mammography. A negative report may reinforce clinical impression. Adenosis and dense breasts may obscure an underlying neoplasm. False positive reports average 6 to 10%. Patient will receive a letter notifying them of these results.
== END ==
PROVIDERS: PCP Internal Medicine; Visit Provider Obstetrics & Gynecology
DX: Z12.31 Encounter for screening mammogram for malignant neoplasm of breast (principal)
CPT/HCPCS: 77063; 77067

== ENCOUNTER 2022-05-10 11:05 | Outpatient (CLI) | payer BC, SELFPAY ==
--- NOTE | 2022-05-10 14:00 | DI.RAD_ITS ---
Exam(s) XR FOOT LT COMPLETE EXAM: XR FOOT LT COMPLETE CLINICAL HISTORY: LEFT FOOT PAIN M79.672. TECHNIQUE: 2D digital imaging was performed of the left foot. Three images were obtained. AP, obli que and lateral views were obtained. COMPARISON: No exams were available for comparison FINDINGS: BONES: No acute fracture is present. No bony destructive lesion is seen. There is a small plantar lyssa caneal spur. There is an enthesophyte at the posterior calcaneus. JOINTS: No dislocation present. SOFT TISSUE: Normal. IMPRESSION: No acute abnormality. DATA REPOSITORY: RADIATION DOSE DELIVERED:
== END 2022-05-10 11:25 ==
LOC: DI 11:07
PROVIDERS: PCP Internal Medicine; Visit Provider Nurse Practitioner Family
DX: M79.672 Pain in left foot (principal); M77.32 Calcaneal spur, left foot
CPT/HCPCS: 73630

== ENCOUNTER 2022-08-07 19:29 | Outpatient (REF) | payer BC, SELFPAY ==
[2022-08-07 20:01] LABS: Bilirubin Negative (Negative); Blood Negative (Negative); Clarity Turbid (Clear); Glucose Negative (Negative); Ketones Negative (Negative); Leukocyte Esterase Negative (Negative); Nitrite Negative (Negative); Specific Gravity 1.025 (1.005-1.025); Urobilinogen 0.2 mg/dL (Up to 0.2)
== END 2022-08-07 19:30 | disposition home or self-care (01) ==
LOC: NCHCN 19:29
PROVIDERS: PCP Internal Medicine; Visit Provider Nurse Practitioner Family
DX: R30.9 Painful micturition, unspecified (principal)
CPT/HCPCS: 81003

== ENCOUNTER → 2023-02-22 01:54 | Outpatient (CLI) | payer BC, SELFPAY ==
--- NOTE | 2023-02-22 12:31 | DI.MAMMO_ITS ---
Exam(s) MAMMO SCREENING EXAM: MAMMO SCREENING CLINICAL HISTORY: screening TECHNIQUE: Mammograms were interpreted according to the usual protocol including computer analysis w [employer] CAD system, tomosynthesis and C-view imaging. COMPARISON: 2013 through 2021 FINDINGS: The breasts are composed of scattered fibroglandular densities, Breast Density category B. No suspicious masses or suspicious microcalcifications are seen. No skin thickening or abnormal axillary lymph nodes are seen. There has been no significant change from prior exams. IMPRESSION: BI-RADS Category 1, Negative mammogram Yearly screening mammography is recommended. Breast Density - Category B, scattered fibroglandular densities. A negative radiographic report should not delay biopsy if a dominant or clinically suspicious mass is present. Up to ten percent of cancers are not identified on mammography. A negative report may reinforce clinical impression. Adenosis and dense breasts may obscure an underlying neoplasm. False positive reports average 6 to 10%. Patient will receive a letter notifying them of these results.
== END ==
PROVIDERS: PCP Internal Medicine; Visit Provider Obstetrics & Gynecology
DX: Z12.31 Encounter for screening mammogram for malignant neoplasm of breast (principal); R92.323 Mammographic fibroglandular density, bilateral breasts
CPT/HCPCS: 77063; 77067

== ENCOUNTER 2023-11-02 15:00 | Outpatient (CLI) | payer BC, SELFPAY ==
--- NOTE | 2023-11-02 15:00 | RT.EKG_ITS ---
APPROVED REPORT Exam: Resting ECG Reason for Exam: Lower abd pain Patient Location: O HR:120 bpm ECG Measurements Heart Rate 120 AXIS OH 178 P 57 QRSd 81 QRS 12 QT 322 T 57 QTc 455 Conclusion Sinus tachycardia...rate> 99 Otherwise normal ECG
== END 2023-11-02 15:01 | disposition home or self-care (01) ==
LOC: DI.CM 15:01
PROVIDERS: PCP Nurse Practitioner Family; Visit Provider Nurse Practitioner Family
DX: R00.0 Tachycardia, unspecified (principal)
CPT/HCPCS: 93010

== ENCOUNTER 2023-11-02 22:23 | Outpatient (REF) | payer BC, SELFPAY ==
[2023-11-02 22:35] LABS: Abs Immature Grans 0.06 10^3/uL (0.0-0.06); Absolute Basophil Count 0.05 10^3/uL (0.0-0.2); Absolute Eosinophil Count 0.13 10^3/uL (0.0-0.7); Absolute Lymphocyte Count 2.38 10^3/uL (1.2-3.4); Absolute Monocyte Count 0.71 10^3/uL (0.1-0.8); Absolute Neutrophil Count 9.98 10^3/uL (1.2-6.7); Basophils % 0.4 %; HCT 42.3 % (36.0-46.0); HGB 13.7 g/dL (11.2-15.7); Immature Grans % 0.5 %; Lymphocytes % 17.9 %; MCHC 32.4 % (32.0-36.0); MCV 93 fL (80-95); Monocytes % 5.3 %; Neutrophils % 74.9 %; Platelet Count 359 10^3/uL (130-400); RBC 4.57 10^6/uL (3.93-5.22); RDW 13.7 % (11.7-14.6); RDW-SD 46.7 fL; WBC 13.32 10^3/uL (4.4-10.8)
[2023-11-02 22:57] LABS: ALT 45 U/L (14-59); AST 24 U/L (15-37); Albumin 3.9 g/dL (3.4-5.0); Alkaline Phosphatase 115 U/L (46-116); Anion Gap 11.4 mmol/L (3-11); BUN 14 mg/dL (7-18); Bilirubin, Total 0.26 mg/dL (0.2-1.0); CO2 25.6 mmol/L (21.0-32.0); CREATININE 0.9 mg/dL (0.55-1.02); Calcium 9.9 mg/dL (8.5-10.1); Chloride 105 mmol/L (98-107); Estimated GFR 73.64 (mL/min/1.73m2); Glucose 129 mg/dL (74-106); Potassium 4.3 mmol/L (3.5-5.1); Sodium 142 mmol/L (136-145); Total Protein 7.3 g/dL (6.4-8.2)
== END 2023-11-02 22:24 | disposition home or self-care (01) ==
LOC: LBN 22:23
PROVIDERS: PCP Nurse Practitioner Family; Visit Provider Nurse Practitioner Family
DX: R10.9 Unspecified abdominal pain (principal)
CPT/HCPCS: 80053; 85025

== ENCOUNTER 2024-03-18 01:20 | Outpatient (CLI) | payer BC, SELFPAY ==
--- NOTE | 2024-03-18 07:42 | DI.MAMMO_ITS ---
Exam(s) MAMMO SCREENING EXAM: MAMMO SCREENING CLINICAL HISTORY: screening. TECHNIQUE: Bilateral full field digital CC and MLO mammographic images were obtained with 3D tomosyn thesis and utilizing computer aided detection (CAD). COMPARISON: Prior mammograms were reviewed. FINDINGS: There are no new right breast findings. In the left breast on 3D cc imaging there is an asymmetric density-possible nodule located 7 cm in fr om the nipple, lateral of center and appearing slightly lobulated, measuring 1.0 x 0.6 cm. There are no malignant-appearing microcalcification groups in this region or elsewhere in either breast. No new significant architectural distortion or skin thickening-traction. IMPRESSION: 1. No radiographic evidence of malignancy in the right breast. 2. Asymmetric density-possible nodule in the left breast as described above. Spot compression CC vie w and breast ultrasound recommended. BI-RADS Category 0 - Incomplete: Need additional imaging evaluation Breast Density - Category B - Scattered areas of fibroglandular density Breast density Category C or D implies that the patient has dense breast tissue. Dense breast tissue can make it harder to find cancer on a mammogram. Dense breast tissue is also associated with an incr eased risk of breast cancer. This information about the result of the mammogram report was provided to the patient to raise their awareness. Use this report when you speak with the patient about their risks for breast cancer, which includes their family history. At that time, you may recommend additional screening tests (Ultrasoun d or MRI) as these tests may add significant information. A negative radiographic report should not delay biopsy if a dominant or clinically suspicious mass is present. Up to ten percent of cancers are not identified on mammography. A negative report may reinforce clinical impression. Adenosis and dense breasts may obscure an underlying neoplasm. False positive reports average 6 to 10%. Patient will receive a letter notifying them of these results.
== END 2024-03-18 01:40 ==
LOC: DI 01:20
PROVIDERS: PCP Nurse Practitioner Family; Visit Provider Obstetrics & Gynecology
DX: Z12.31 Encounter for screening mammogram for malignant neoplasm of breast (principal); R92.323 Mammographic fibroglandular density, bilateral breasts
CPT/HCPCS: 77063; 77067

== ENCOUNTER 2024-03-26 02:14 | Outpatient (CLI) | payer BC, SELFPAY ==
--- NOTE | 2024-03-26 | DI.MAMMO_ITS ---
Exam(s) MAMMO SCREEN CALL BACK UNI EXAM: MAMMO SCREEN CALL BACK UNI CLINICAL HISTORY: 1.0 x 0.6 cm asymmetric density-possible nodule 7 cm from nipple, slightly. TECHNIQUE: Craniocaudal and mediolateral oblique Full Field Digital Mammography views of the left br east with Computer Aided Diagnosis. COMPARISON: Comparison is made with prior examinations. FINDINGS: Mammography/Tomosynthesis: Masses/Architectural Distortion: The area of concern in the outer left breast does not persist on the additional views. No suspicious mass or area of architectural distortion is present. Microcalcifictions: No suspicious pleomorphic-type are seen. Skin Thickening/Nipple Retraction: None. IMPRESSION: 1. No evidence of malignancy is noted. 2. Unless there is more urgent need, follow-up screening mammography is recommended, as per [employer] [employer] guidelines. 3. The findings were discussed with the patient on the date of the examination. BI-RADS Category 1 - Negative Breast Density - Category B - Scattered areas of fibroglandular density Breast density Category C or D implies that the patient has dense breast tissue. Dense breast tissue can make it harder to find cancer on a mammogram. Dense breast tissue is also associated with an incr eased risk of breast cancer. This information about the result of the mammogram report was provided to the patient to raise their awareness. Use this report when you speak with the patient about their risks for breast cancer, which includes their family history. At that time, you may recommend additional screening tests (Ultrasoun d or MRI) as these tests may add significant information. A negative radiographic report should not delay biopsy if a dominant or clinically suspicious mass is present. Up to ten percent of cancers are not identified on mammography. A negative report may reinforce clinical impression. Adenosis and dense breasts may obscure an underlying neoplasm. False positive reports average 6 to 10%. Patient will receive a letter notifying them of these results.
== END 2024-03-26 02:34 ==
LOC: DI 02:14
PROVIDERS: PCP Nurse Practitioner Family; Visit Provider Obstetrics & Gynecology
DX: R92.323 Mammographic fibroglandular density, bilateral breasts (principal); Z12.31 Encounter for screening mammogram for malignant neoplasm of breast
CPT/HCPCS: 77063; 77067

== ENCOUNTER 2024-11-14 17:23 | Outpatient (CLI) | payer BC, SELFPAY ==
--- NOTE | 2024-11-14 17:15 | RT.EKG_ITS ---
APPROVED REPORT Exam: Resting ECG Reason for Exam: chest discomfort Patient Location: O HR:117 bpm ECG Measurements Heart Rate 117 AXIS ME 136 P 44 QRSd 82 QRS -19 QT 304 T 65 QTc 424 Conclusion Sinus tachycardia...rate> 99 Baseline wander in lead(s) V6
== END 2024-11-14 17:24 | disposition home or self-care (01) ==
LOC: DI.CM 17:24
PROVIDERS: PCP Nurse Practitioner Family; Visit Provider Nurse Practitioner Family
DX: R07.89 Other chest pain (principal)
CPT/HCPCS: 93010

== ENCOUNTER 2024-11-14 18:06 | Emergency (ER) | payer BC, SELFPAY ==
[2024-11-14] VITALS (20 sets, daily range): BP systolic 116–132; BP diastolic 66–84; PULSE 71–128; RESP 12–22; TEMP 38.7; O2SAT 93–97
--- NOTE | 2024-11-14 18:00 | RT.EKG_ITS ---
APPROVED REPORT Exam: Resting ECG Reason for Exam: Tachycardia; CP Patient Location: E HR:130 bpm ECG Measurements Heart Rate 130 AXIS DC 121 P 41 QRSd 79 QRS -14 QT 294 T 63 QTc 433 Conclusion Sinus tachycardia...rate> 99 Otherwise there are no significant changes compared to prior EKG performed on 11/14/2024 at 17:21.
--- NOTE | 2024-11-14 18:15 | DI.CT_ITS ---
Exam(s) CT CHEST PE CTA EXAM: CT CHEST PE CTA CLINICAL HISTORY: covid, cp, ? PE. TECHNIQUE: Imaging Protocol: Axial CT angiography was performed with multi- slice acquisition and multi-planar and/or 3D reconstructions. Lung Computer Aided Detection (CAD) was utilized. CONTRAST MATERIAL: Intravenous: Omnipaque 350 contrast volume:80 mL COMPARISON: CR XR CHEST 2V PA LATERAL from 11/04/2018 FINDINGS: Tracheobronchial tree: Patent where visualized. No bronchiectasis. Pulmonary parenchyma: No consolidation or dominant measurable mass. No architectural distortion. Pulmonary Arteries: No evidence of filling defect to suggest pulmonary emboli. Mediastinum and Jackelyn: No dominant adenopathy or fluid collection. The esophagus is unremarkable. Visualized thyroid gland: Unremarkable. Pleura: No effusion or pneumothorax. Heart: The heart is not dilated. No coronary artery calcifications are seen. No pericardial effusion. Aorta: Thoracic aorta non-dilated. No evidence of dissection. Upper abdomen: Unremarkable. Soft tissues: Unremarkable. Bones: Within normal limits for the patient's age. IMPRESSION: 1. No evidence of pulmonary embolism, thoracic aortic dissection or aneurysm. 2. There is no acute pulmonary process. 3. The preliminary [facility] report was reviewed. RADIATION DOSE DELIVERED: 108.25mGy.cm Total DLP DATA REPOSITORY: All CT scans at this facility are submitted to the National Radiology Data Registry (NRDR) Dose Index Registry (DIR) with the [employer] ([employer]). RADIATION OPTIMIZATION: All CT scans at this facility use at least one of these dose optimization techniques: automated exposure control; mA and/or kV adjustment per patient size (includes targeted exams where dose is matched to clinical indication); or iterative reconstruction.
--- NOTE | 2024-11-14 18:36 | ED.GENADUL_ITS ---
Discharge Plan Disposition Patient Disposition: Home Condition: Stable Discharge Details Clinical Impression: COVID-19 Primary Care Provider: Magaly Zuniga ED Provider: Dinesh Jaramillo Home Meds and New Rx's Prescriptions: No Action melatonin 3 MG tablet 3 mg PO HS loratadine 5 mg/5 mL solution 10 mg PO DAILY PRN (Reason: allergy symptoms) Discharge Instructions Instructions: COVID-19 ED Additional Instructions: You were seen in the emergency department for your COVID-19 infection with chest pain, your cardiac workup is negative, your CTA of your chest shows no pulmonary emboli, no significant fluid on the lungs, your labs are reassuring, please treat with Tylenol and conservative treatments at home, your likely mildly dehydrated with mild elevation of your kidney enzymes and some dizziness with the transient low blood pressure reading that resolved with fluids here in the emergency department please continue to treat for any viral illness at home and return for any respiratory distress or worsening despite treatment. Referrals: Magaly Zuniga [Primary Care Provider, Medicine] Discharge Data Discharge Date/Time-TO BE ENTERED AT DEPARTURE: 11/14/24 20:17 HPI General Date/Time Provider Initiated Documentation: 11/14/24 18:15 . HPI Narrative: 58 year-old female presents to ED today by POV/ambulating with a chief complaint of URI symptoms with onset yesterday, seen by [facility] concern for PE with tachycardia and is positive for Covid-19. Quality described as mild chest pain, no radiation to respiratory distress, hemoptysis, profound lethargy, diaphor esis, crushing chest pain. Severity is described as moderate. Palliating factors include nothing specific attempted. Provoking factors include nothing specific. Events leading up to the incident/Associated Symptoms: Patient is vaccinated and boosted for Covid-19. Patient not anticoagulated. Related Data Home Medications ?Medication ?Instructions ?Recorded ?Confirmed melatonin 3 mg tablet 3 mg PO HS 03/10/13 11/14/24 loratadine 5 mg/5 mL oral solution 10 mg PO DAILY PRN allergy symptoms 03/07/19 11/14/24 Allergies Allergy/AdvReac Type Severity Reaction Status Date / Time No Known Allergies Allergy Verified 11/14/24 18:11 General Stated Complaint: [facility] AMBREEN: 3 Review of Systems All systems reviewed & are unremarkable except as noted in HPI and below Exam Narrative Exam Narrative: GENERAL APPEARANCE: Well-nourished, non-toxic, awake and alert, atraumatic, mild acute distress. SKIN: Warm, pink, dry, intact, without rashes/lesions/ulcerations. HEAD: Normocephalic, atraumatic, normal hair distribution for gender/age. EYES: Normal conjunctiva, no exudates on lids/lashes. ENT: Nares patent, no circumoral cyanosis, no facial swelling NECK: Supple, trachea midline, painless cervical ROM. LUNGS/CHEST: Lungs CTA bilaterally-no rhonchi/rales/wheezes diffusely, non-labored respirations, normal A/P diameter, symmetrical expansion, no chest wall deformity HEART (CV/PV): Regular rate and rhythm without murmur, no peripheral edema, no JVD. ABDOMEN: Soft, non-distended, no guarding. MSK: Normal ROM, no swelling/deformity to bilateral UEs or LEs, moving all extremities without weakness, no cyanosis, spine midline without tenderness, normal curvature. NEURO: Mental Status AAOx4 - alert to person, place, time, events No facial droop, no forehead involvement. Motor: No focal weakness - strength 5/5 in bilateral UEs and LEs, proximal and distal, symmetric. Sensory: sensation intact to light touch globally. Gait normal: patient ambulated without ataxia into ED room. PSYCH: euthymic, cooperative, pleasant, appropriate speech Course Vital Signs Vital signs: Vital Signs Temperature 38.7 C H 11/14/24 18:07 Pulse 128 H 11/14/24 18:07 Respiratory Rate 16 11/14/24 18:07 Blood Pressure 132/84 11/14/24 18:07 Pulse Oximetry 96 11/14/24 18:07 Temperature 38.7 C H 11/14/24 18:11 Temperature Source Tympanic 11/14/24 18:11 Pulse 128 H 11/14/24 18:11 Respiratory Rate 16 11/14/24 18:11 Blood Pressure 132/84 11/14/24 18:11 Blood Pressure Position Sitting 11/14/24 18:11 Pulse Oximetry 96 11/14/24 18:11 Oxygen Delivery Method Room Air 11/14/24 18:11 Oxygen Flow Rate 0 11/14/24 18:11 Pain Level 0 11/14/24 18:11 Medical Decision Making This dictation utilizes [id number] dictation software and may contain unedite d grammatical errors. 58 year-old female presents to ED today by POV/ambulating with a chief complaint of URI symptoms with onset yesterday, seen by [facility] concern for PE with tachycardia and is positive for Covid-19. Quality described as mild chest pain, no radiation to respiratory distress, hemoptysis, profound lethargy, diaphoresis, crushing chest pain. Severity is described as moderate. Palliating factors include nothing specific attempted. Provoking factors include nothing specific. Events leading up to the incident/Associated Symptoms: Patient is vaccinated and boosted for Covid-19. Patients' medical history: noncontributory. Family and social history: noncontributory. Pertinent exam findings / vital signs include benign cardiopulmonary exam, benign abdomen, no respiratory distress, nontoxic and febrile Differential / pathologies of concern include COVID-19, pneumonia, PE. Diagnostic studies of: -CMP, troponin, BNP, lipase, EKG, CTA chest PE study. - CMP unremarkable - Troponin negative with reliable onset - BNP negative no right heart strain suspected - Lipase negative - EKG shows no signs of perimyocarditis, no STEMI - CTA of the chest shows no PE, no acute findings in the lungs Interventions of: -Offered Paxlovid, patient refused will manage conservatively at home. ED Course/Assessment/Plan: 58-year-old female seen at [facility] test positive for COVID-19, had tachycardia, the [facility] provider referred to the ER for PE rule out, she denies respiratory distress or hemoptysis, CT of the chest shows no PE, there is no evidence of right heart strain with negative troponin and BNP, counseled on conservative management at home and strict return criteria for any acute worsening. Findings not consistent with PE, respiratory distress, respiratory failure. Disposition of COVID-19. Patient verbalized understanding of the plan and return to ED criteria and engaged in shared decision making. Medical Records Medical records reviewed: Yes I reviewed the patient's medical records. Imaging Data Radiologic Study: Attestation: I personally reviewed and interpreted this imaging study as follows: Imaging: CT Scan Radiologist's impression: Exam: CTA Chest With Contrast Exam date and time: 11/14/2024 6:45 PM Age: 58 years old Clinical indication: Other: Covid, cp, ? pe TECHNIQUE: Imaging protocol: Computed tomographic angiography of the chest with contrast. Exam focused on the arteries. 3D rendering (Not supervised by radiologist): MIP and/or 3D reconstructed images were created by the technologist. Contrast material: 350; Contrast volume: 80 ml; Contrast route: INTRAVENOUS (IV); COMPARISON: CR XR CHEST 2V PA LATERAL 11/04/2018 2:29 PM FINDINGS: Pulmonary arteries: No acute pulmonary embolus. Aorta: Unremarkable. No aortic aneurysm. No aortic dissection. Lungs: The lungs are clear. Pleural spaces: No pleural effusion or pneumothorax. Heart: Heart is normal size. No pericardial effusion. Lymph nodes: No enlarged lymph nodes. Bones/joints: Bones have a normal appearance. No acute fracture or suspicious bone lesion. 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 Soft tissues: Unremarkable. IMPRESSION: 1. No pulmonary embolus. 2. No acute pulmonary findings. Dictated and Authenticated by: Stefanie Schmidt MD. Lab Data Lab results reviewed: Yes I reviewed the patient's lab results. Labs: Laboratory Tests Range/Units 11/14/24 18:38 Sodium (136-145) mmol/L 137 Potassium (3.5-5.1) mmol/L 4.2 Chloride (98-107) mmol/L 102 Carbon Dioxide (21.0-32.0) mmol/L 26.1 Anion Gap (3-11) mmol/L 8.9 BUN (7-18) mg/dL 13 Creatinine (0.55-1.02) mg/dL 1.1 H Est GFR (CKD-EPI 2020) (mL/min/1.73m2) 57.52 Glucose (74-106) mg/dL 131 H Calcium (8.5-10.1) mg/dL 8.7 Total Bilirubin (0.2-1.0) mg/dL 0.3 AST (15-37) U/L 27 ALT (14-59) U/L 39 Alkaline Phosphatase (46-116) U/L 93 Troponin I (<or=51) ng/L 4 NT-Pro-B Natriuret Pep (<300) pg/mL 33 Total Protein (6.4-8.2) g/dL 7.5 Albumin (3.4-5.0) g/dL 3.8 Lipase (<78) U/L 22 PFSH All Active Problems COVID-19 (Acute) Abnormal mammogram of both breasts (Acute) Additional imaging performed 03/18/2024. Recommend spot compression and ultrasound left breast. Status post total abdominal hysterectomy and bilateral salpingo-oophorectomy (Acute) Surgical History Hx of colonoscopy Hx of dilation and curettage 2018 Ligation of fallopian tube section X 2 Family History Mother Lupus Stroke in her 40s Father Prostate cancer Cancer of spine Social History Smoking/Tobacco Use Status: Never Second Hand Exposure: No Smoking risk assessment performed?: Yes Alcohol Intake: never Drug use: Never Substance use type: does not use Seatbelt use: always Do you feel safe at home: Yes Do you feel safe in your relationship?: Yes History History 2 Para 2 Hx # Term Pregnancies Multiple births Hx # Pregnancies Ectopic pregnancies AB induced Hx Number of Living Children AB spontaneous
[2024-11-14] MEDS: Omnipaque 350 MG/ML 100 ML BTL IJ (18:48)
[2024-11-14] MEDS: Normal Saline - Diluent 50 ML VIAL IJ (18:49)
[2024-11-14] MEDS: Normal Saline Flush 10 ML SYR IVP (18:49)
[2024-11-14 19:13] LABS: ALT 39 U/L (14-59); AST 27 U/L (15-37); Albumin 3.8 g/dL (3.4-5.0); Alkaline Phosphatase 93 U/L (46-116); Anion Gap 8.9 mmol/L (3-11); BUN 13 mg/dL (7-18); Bilirubin, Total 0.3 mg/dL (0.2-1.0); CO2 26.1 mmol/L (21.0-32.0); Calcium 8.7 mg/dL (8.5-10.1); Chloride 102 mmol/L (98-107); Estimated GFR 57.52 (mL/min/1.73m2); Glucose 131 mg/dL (74-106); Lipase 22 U/L (<78); NT-proBNP 33 pg/mL (<300); Potassium 4.2 mmol/L (3.5-5.1); Sodium 137 mmol/L (136-145); Total Protein 7.5 g/dL (6.4-8.2); Troponin I 4 ng/L (<or=51)
--- NOTE | 2024-11-14 19:34 | DI.VRAD_ITS ---
PROCEDURE INFORMATION: Exam: CTA Chest With Contrast Exam date and time: 11/14/2024 6:45 PM Age: 58 years old Clinical indication: Other: Covid, cp, ? pe TECHNIQUE: Imaging protocol: Computed tomographic angiography of the chest with contrast. Exam focused on the arteries. 3D rendering (Not supervised by radiologist): MIP and/or 3D reconstructed images were created by the technologist. Contrast material: 350; Contrast volume: 80 ml; Contrast route: INTRAVENOUS (IV); COMPARISON: CR XR CHEST 2V PA LATERAL 11/04/2018 2:29 PM FINDINGS: Pulmonary arteries: No acute pulmonary embolus. Aorta: Unremarkable. No aortic aneurysm. No aortic dissection. Lungs: The lungs are clear. Pleural spaces: No pleural effusion or pneumothorax. Heart: Heart is normal size. No pericardial effusion. Lymph nodes: No enlarged lymph nodes. Bones/joints: Bones have a normal appearance. No acute fracture or suspicious bone lesion. 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 Soft tissues: Unremarkable. IMPRESSION: 1. No pulmonary embolus. 2. No acute pulmonary findings. Dictated and Authenticated by: Stefanie Schmidt MD. Orderin Ella Montiel MD
--- NOTE | 2024-11-14 19:45 | RT.EKG_ITS ---
APPROVED REPORT Exam: Resting ECG Reason for Exam: tachycardia Patient Location: E HR:104 bpm ECG Measurements Heart Rate 104 AXIS CA 143 P 54 QRSd 80 QRS 0 QT 320 T 44 QTc 422 Conclusion Sinus tachycardia...rate> 99 Otherwise normal ECG There are no significant changes compared to prior EKG performed on 11/14/2024 at 18:10.
== END 2024-11-14 20:17 | disposition home or self-care (01) ==
PROVIDERS: Emergency Provider Physician Assistant; PCP Nurse Practitioner Family
DX: U07.1 COVID-19 (principal); Z11.52 Encounter for screening for COVID-19; R07.9 Chest pain, unspecified
CPT/HCPCS: 71275; 80053; 83690; 93005; 99285; 83880; 84484; 93010; 99284; J3490

== ENCOUNTER 2025-01-05 10:26 | Outpatient (REF) | payer BC, SELFPAY ==
[2025-01-05 19:14] LABS: HCT 43.5 % (36.0-46.0); HGB 14.4 g/dL (11.2-15.7); MCH 30.6 pg (27.0-33.0); MCHC 33.1 % (32.0-36.0); MCV 93 fL (80-95); MPV 10.3 fL (8.0-11.0); Platelet Count 320 10^3/uL (130-400); RBC 4.70 10^6/uL (3.93-5.22); RDW 13.5 % (11.7-14.6); RDW-SD 46.3 fL; WBC 7.25 10^3/uL (4.4-10.8)
[2025-01-05 19:35] LABS: ALT 33 U/L (14-59); AST 18 U/L (15-37); Albumin 3.6 g/dL (3.4-5.0); Alkaline Phosphatase 97 U/L (46-116); Anion Gap 8.8 mmol/L (3-11); BUN 17 mg/dL (7-18); Bilirubin, Total 0.3 mg/dL (0.2-1.0); CO2 27.2 mmol/L (21.0-32.0); Calcium 8.9 mg/dL (8.5-10.1); Calculated LDL 108 mg/dL (<100); Chloride 104 mmol/L (98-107); Cholesterol 208 mg/dL (<200); Estimated GFR 83.78 (mL/min/1.73m2); Glucose 116 mg/dL (74-106); HDL Cholesterol 42 mg/dL (>or=50); Potassium 4.0 mmol/L (3.5-5.1); Sodium 140 mmol/L (136-145); Total Protein 7.4 g/dL (6.4-8.2); Triglyceride 292 mg/dL (<150)
[2025-01-05 21:29] LABS: TSH (W/Ref FT4) 6.01 uIU/mL (0.36-3.74)
== END 2025-01-05 10:27 | disposition home or self-care (01) ==
LOC: NCHCN 10:26
PROVIDERS: PCP Nurse Practitioner Family; Visit Provider Nurse Practitioner Family
DX: R00.0 Tachycardia, unspecified (principal); Z82.3 Family history of stroke
CPT/HCPCS: 80053; 80061; 85027; 84439; 84443